=== PATIENT | male | born 1960 | race Caucasian/White ===

== ENCOUNTER 2018-10-28 23:25 | Emergency (ER) | payer MEDICAID ==
[~2018-10-28] VITALS: Ht 185.4 cm; Wt 138.0 kg
[2018-10-28 23:30] VITALS: BP 176/117
--- NOTE | 2018-10-29 00:06 | NUR ---
PT HERE FOR MEDICATION REFILL. PT RAN OUT OF AND DOES NOT HAVE PCP FOR REFILL. PT RESTING IN BED.
--- NOTE | 2018-10-29 00:36 | NUR ---
Patient/Caregiver given discharge instructions and they have confirmed that they understand the instructions. Patient ambulatory with steady gait.
== END 2018-10-29 00:37 | disposition home or self-care (01) ==
LOC: ED 10-29 00:11
DX: I10 Essential (primary) hypertension (principal); Z76.0 Encounter for issue of repeat prescription; F17.200 Nicotine dependence, unspecified, uncomplicated; E78.00 Pure hypercholesterolemia, unspecified
CPT/HCPCS: 99283

== ENCOUNTER 2018-11-20 15:57 | Emergency (ER) | payer MEDICAID ==
[~2018-11-20] VITALS: Ht 185.4 cm; Wt 139.6 kg
[2018-11-20] MEDS ORDERED: LIDOCAINE-MPF 1%, 5ML INFIL ONE (16:30)
[2018-11-20 16:36] VITALS: BP 159/100
[2018-11-20] MEDS ORDERED: LIDOCAINE-MPF 1%, 5ML ONE (16:54)
--- NOTE | 2018-11-20 18:27 | NUR ---
I&D RIGHT UPPER ARM BY CARPET INSTALLER HELPER. CLEAN DRY DRESSING IN PLACE. AMBULATED TO DISCHARGE WINDOW, STEADY GAIT
== END 2018-11-20 18:29 | disposition home or self-care (01) ==
LOC: ED 18:21
DX: L02.413 Cutaneous abscess of right upper limb (principal); F11.10 Opioid abuse, uncomplicated; I10 Essential (primary) hypertension; E78.5 Hyperlipidemia, unspecified; E07.9 Disorder of thyroid, unspecified; F17.200 Nicotine dependence, unspecified, uncomplicated
CPT/HCPCS: 10060; 99283

== ENCOUNTER 2019-08-01 15:15 | Emergency (ER) | payer MEDICAID ==
[~2019-08-01] VITALS: Ht 182.9 cm; Wt 138.0 kg
--- NOTE | 2019-08-01 15:58 | NUR ---
NO ANSWER IN THE LOBBY AT THIS TIME.
--- NOTE | 2019-08-01 16:06 | NUR ---
NO ANSWER IN THE LOBBY AT THIS TIME.
--- NOTE | 2019-08-01 16:16 | NUR ---
PT TO ROOM FROM LOBBY AT THIS TIME.
--- NOTE | 2019-08-01 16:35 | NUR ---
PT BROUGHT BACK FROM TRIAGE WITH CHIEF COMPLAINT RIGHT EYE SWELLING AND REDDNESS SINCE LAST NIGHT.
--- NOTE | 2019-08-01 17:00 | NUR ---
PT RESTING IN BED, CALL LIGHT IN REACH
[2019-08-01] MEDS ORDERED: LABETALOL 5MG/ML, 20ML IVPush ONE (17:30)
[2019-08-01] MEDS ORDERED: AMPICILLIN/SULBACTAM 3 GM in SODIUM CHLORIDE 0.9% 100 ML IV ONE (17:30)
[2019-08-01] MEDS ORDERED: LABETALOL 5MG/ML, 20ML ONE (17:36)
[2019-08-01 17:49] LABS: BASOPHILS # (AUTO) 0.03 x10^3/uL (0-0.1); BASOPHILS % (AUTO) 0 % (0-1); EOSINOPHILS # (AUTO) 0.53 x10^3/uL (0-0.4); EOSINOPHILS % (AUTO) 4 % (1-7); LYMPHOCYTES # (AUTO) 1.32 x10^3/uL (1-3.4); LYMPHOCYTES % (AUTO) 11 % (22-44); MD NO; MEAN CORPUSCULAR HEMOGLOBIN 32.9 pg (27.5-34.5); MEAN CORPUSCULAR HGB CONC 33.9 g/dL (33.2-36.2); MEAN CORPUSCULAR VOLUME 96.9 fL (81-97); MEAN PLATELET VOLUME 8.9 fL (7.4-10.4); MONOCYTES # (AUTO) 0.85 x10^3/uL (0.2-0.8); MONOCYTES % (AUTO) 7 % (2-9); NEUTROPHILS # (AUTO) 9.42 x10^3/uL (1.8-6.8); NEUTROPHILS % (AUTO) 78 % (42-75); PLATELET COUNT 215 x10^3/uL (130-400); RED BLOOD COUNT 4.44 x10^6/uL (4.38-5.82); RED CELL DISTRIBUTION WIDTH 14.2 % (9.4-14.8)
[2019-08-01 18:00] LABS: ALANINE AMINOTRANSFERASE 32 U/L (12-78); ALBUMIN 3.4 g/dL (3.4-5.0); ANION GAP 5 mmol/L (5-15); CHLORIDE 106 mmol/L (98-107)
[2019-08-01 18:04] LABS: ALKALINE PHOSPHATASE 46 U/L (45-117); BILIRUBIN,TOTAL 0.3 mg/dL (0.2-1.0); TOTAL PROTEIN 7.9 g/dL (6.4-8.2); TROPONIN I 0.026 ng/mL (0.000-0.045)
--- NOTE | 2019-08-01 18:05 | NUR ---
WAITING FOR ULTRASOUND PIV PLACEMENT.
[2019-08-01 18:25] LABS: FREE T4 (FREE THYROXINE) 0.47 ng/dL (0.76-1.46)
[2019-08-01] MEDS ORDERED: hydrALAzine 20 MG/ML, 1ML IV ONE (18:30)
--- NOTE | 2019-08-01 18:43 | NUR ---
PT TO CT
--- NOTE | 2019-08-01 18:58 | NUR ---
Assumed care from AMINATA Zacarias
[2019-08-01] MEDS ORDERED: OMNIPAQUE 350 MG/ML, 75ML BOTTLE ONE (19:02)
[2019-08-01] MEDS ORDERED: hydrALAzine 20 MG/ML, 1ML ONE (19:04)
--- NOTE | 2019-08-01 19:10 | NUR ---
Pt returned from CT. BP med given. Pt aware of wait for CT results. Call light in place.
[2019-08-01] MEDS ORDERED: FUROSEMIDE 40 MG/4 ML IV ONE (20:00)
[2019-08-01] MEDS ORDERED: FUROSEMIDE 20 MG/2 ML ONE (20:02)
[2019-08-01 20:07] VITALS: BP 213/136
--- NOTE | 2019-08-01 20:22 | NUR ---
Pt d/c'd to home care. Pt alert, oriented and ambulatory. Pt educated on prescriptions, home care, OTC meds and follow-up. Pt VU. Pt ambulated out of ER.
== END 2019-08-01 20:25 | disposition home or self-care (01) ==
LOC: ED 20:00
DX: L03.213 Periorbital cellulitis (principal); E03.9 Hypothyroidism, unspecified; F17.200 Nicotine dependence, unspecified, uncomplicated; I10 Essential (primary) hypertension; R50.9 Fever, unspecified; R94.31 Abnormal electrocardiogram [ECG] [EKG]; E78.5 Hyperlipidemia, unspecified; Z76.0 Encounter for issue of repeat prescription
CPT/HCPCS: 36415; 70481; 71045; 80053; 83605; 83880; 84439; 84443; 84484; 85025; 87040; 93005; 96365; 96375; 99285; J0295; J0360; J1940; Q9967

== ENCOUNTER 2019-10-08 14:22 | Inpatient (IN) | payer MEDICAID ==
[~2019-10-08] VITALS: Ht 185.4 cm; Wt 138.2 kg
--- NOTE | 2019-10-08 14:42 | NUR ---
PT STATES THAT HE HAS PAINFUL URINATION WITH SOB THAT DEVELOPED SPONTANEOUSLY 2 DAYS AGO. PT STATES THAT HE USES METH AND HEROIN WITH HIS LAST USE BEING YESTERDAY AND THAT HE HAS A LUMP ON HIS LEG. PT AMBULATORY AND EUPNIC. PLACED ON MONITOR. WILL CONTINUE TO MONITOR PT.
[2019-10-08] MEDS ORDERED: LABETALOL 5MG/ML, 20ML ONE (15:58)
[2019-10-08] MEDS ORDERED: SODIUM CHLORIDE FLUSH 10ML SYR IVF ONE (16:00)
[2019-10-08] MEDS ORDERED: LABETALOL 5MG/ML, 20ML IVPush ONE (16:00)
--- NOTE | 2019-10-08 17:07 | NUR ---
PIV PLACED ON SECOND ATTEMPT. PT TOLERATED ATTMEPT WELL AND HAPPY TO HAVE PIV PLACED.
[2019-10-08 17:27] LABS: MICROSCOPIC AUTO
[2019-10-08 17:29] LABS: CULTURE INDICATED? NO
[2019-10-08 18:47] LABS: BASOPHILS # (AUTO) 0.05 x10^3/uL (0-0.1); BASOPHILS % (AUTO) 1 % (0-1); EOSINOPHILS # (AUTO) 0.67 x10^3/uL (0-0.4); EOSINOPHILS % (AUTO) 8 % (1-7); LYMPHOCYTES # (AUTO) 2.02 x10^3/uL (1-3.4); LYMPHOCYTES % (AUTO) 25 % (22-44); MD NO; MEAN CORPUSCULAR HEMOGLOBIN 32.7 pg (27.5-34.5); MEAN CORPUSCULAR HGB CONC 33.4 g/dL (33.2-36.2); MEAN CORPUSCULAR VOLUME 97.9 fL (81-97); MEAN PLATELET VOLUME 9.3 fL (7.4-10.4); MONOCYTES % (AUTO) 9 % (2-9); NEUTROPHILS # (AUTO) 4.72 x10^3/uL (1.8-6.8); NEUTROPHILS % (AUTO) 58 % (42-75); PLATELET COUNT 204 x10^3/uL (130-400); RED BLOOD COUNT 4.35 x10^6/uL (4.38-5.82); RED CELL DISTRIBUTION WIDTH 14.6 % (9.4-14.8)
[2019-10-08 18:51] LABS: ALBUMIN 3.3 g/dL (3.4-5.0); ANION GAP 4 mmol/L (5-15); CALCIUM 8.8 mg/dL (8.5-10.1); CHLORIDE 107 mmol/L (98-107); CREATININE 1.67 mg/dL (0.7-1.3)
[2019-10-08 18:55] LABS: TROPONIN I 0.025 ng/mL (0.000-0.045)
--- NOTE | 2019-10-08 20:15 | NUR ---
TP RN: PER DR. CONDON NO NEED FOR COVID R/O.
[2019-10-08 20:17] LABS: ALANINE AMINOTRANSFERASE 33 U/L (12-78); ALBUMIN 3.3 g/dL (3.4-5.0)
[2019-10-08 20:19] LABS: BILIRUBIN, DIRECT < 0.1 mg/dL (0.1-0.2)
[2019-10-08 20:21] LABS: ALKALINE PHOSPHATASE 34 U/L (45-117); BILIRUBIN,TOTAL 0.3 mg/dL (0.2-1.0); CREATINE KINASE, TOTAL 538 U/L (39-308); TOTAL PROTEIN 7.5 g/dL (6.4-8.2)
[2019-10-08] MEDS ORDERED: TRAZODONE 50MG TABLET PO PRN (20:30)
[2019-10-08] MEDS ORDERED: METHOCARBAMOL 500 MG TABLET PO PRN (20:30)
[2019-10-08] MEDS ORDERED: ONDANSETRON 2MG/ML, 2ML IVPush PRN (20:30)
[2019-10-08] MEDS ORDERED: ACETAMINOPHEN 325 MG TABLET PO PRN (20:30)
[2019-10-08 20:34] LABS: BILIRUBIN,INDIRECT 0.2 mg/dL (0.0-2.0)
--- NOTE | 2019-10-08 20:48 | NUR ---
GAVE REPORT TO KARINA COATES
[2019-10-08 20:49] LABS: CREATININE,URINE RANDOM 92.1 mg/dL
[2019-10-08 21:09] LABS: CHLORIDE,URINE RANDOM 107 mmol/L; POTASSIUM,URINE RANDOM 57 mmol/L; SODIUM,URINE RANDOM 84 mmol/L
[2019-10-08 21:16] VITALS: BP 220/125
[2019-10-08 21:22] LABS: FREE T4 (FREE THYROXINE) 0.41 ng/dL (0.76-1.46)
[2019-10-08] MEDS: NICOTINE 14MG/24 HR PATCH.TD24 TD SCH (21:28)
[2019-10-08] MEDS: HEPARIN 5,000 UNITS/ML, 1ML SQ SCH (21:29)
[2019-10-08] MEDS: hydrALAzine 20 MG/ML, 1ML IVPush PRN (21:29)
[2019-10-08 21:32] VITALS: BP 203/120
[2019-10-08 23:00] VITALS: BP 216/114
[2019-10-08] MEDS ORDERED: OXYcodone/APAP 10/325MG TABLET PO ONE (23:30)
[2019-10-09 01:14] VITALS: BP 210/120
[2019-10-09] MEDS: NITROGLYCERIN OINT 2%, 1GM TP SCH ×3 (01:16→10:51)
[2019-10-09] MEDS: LIOTHYRONINE 5 MCG TABLET PO SCH ×2 (01:17→08:42)
[2019-10-09] MEDS: LEVOTHYROXINE 100 MCG INJ IVPush SCH ×2 (01:17→08:42)
[2019-10-09 01:43] LABS: AMPHETAMINE SCREEN, URINE Positive (Negative); BARBITURATE SCREEN, URINE Negative (Negative); BENZODIAZEPINE SCREEN, URINE Negative (Negative); CANNABINOID SCREEN, URINE Negative (Negative); COCAINE SCREEN, URINE Negative (Negative); METHADONE SCREEN, URINE Negative (Negative); OPIATE SCREEN, URINE Positive (Negative)
[2019-10-09 01:56] VITALS: BP 200/124
[2019-10-09 02:46] VITALS: BP 217/142
[2019-10-09] MEDS: HEPARIN 5,000 UNITS/ML, 1ML SQ SCH ×3 (03:37→20:27)
[2019-10-09 06:46] LABS: BASOPHILS # (AUTO) 0.05 x10^3/uL (0-0.1); BASOPHILS % (AUTO) 1 % (0-1); EOSINOPHILS # (AUTO) 0.55 x10^3/uL (0-0.4); EOSINOPHILS % (AUTO) 6 % (1-7); LYMPHOCYTES # (AUTO) 1.17 x10^3/uL (1-3.4); LYMPHOCYTES % (AUTO) 14 % (22-44); MD NO; MEAN CORPUSCULAR HEMOGLOBIN 32.8 pg (27.5-34.5); MEAN CORPUSCULAR VOLUME 99.3 fL (81-97); MEAN PLATELET VOLUME 8.6 fL (7.4-10.4); MONOCYTES # (AUTO) 0.49 x10^3/uL (0.2-0.8); MONOCYTES % (AUTO) 6 % (2-9); NEUTROPHILS # (AUTO) 6.31 x10^3/uL (1.8-6.8); NEUTROPHILS % (AUTO) 74 % (42-75); PLATELET COUNT 206 x10^3/uL (130-400); RED CELL DISTRIBUTION WIDTH 14.3 % (9.4-14.8)
[2019-10-09] MEDS ORDERED: METHADONE 5 MG TABLET PO SCH (07:00)
[2019-10-09 07:07] LABS: ANION GAP 6 mmol/L (5-15); CALCIUM 9.8 mg/dL (8.5-10.1); CHLORIDE 104 mmol/L (98-107)
[2019-10-09 07:10] LABS: CHOLESTEROL, TOTAL 256 mg/dL (140-239); CREATININE 1.61 mg/dL (0.7-1.3); HDL CHOL % 20 % (26-37); HDL CHOLESTEROL (DIRECT) 51 mg/dL (40-60); LDL CHOLESTEROL,CALCULATED 154 mg/dL (54-169); TRIGLYCERIDES 256 mg/dL (50-200); VLDL CHOLESTEROL 51 mg/dL (0-25)
[2019-10-09] MEDS: AMLODIPINE 5 MG TABLET PO SCH ×2 (10:26→20:27)
[2019-10-09] MEDS ORDERED: METHADONE 10 MG TABLET ONE (10:57)
[2019-10-09] MEDS: METHADONE 10 MG TABLET PO SCH ×2 (11:55→18:05)
[2019-10-09] MEDS: hydrALAzine 20 MG/ML, 1ML IVPush PRN (13:30)
[2019-10-09] MEDS ORDERED: LABETALOL 5MG/ML, 20ML IVPush PRN (16:00)
[2019-10-09] MEDS: METOPROLOL TARTRATE 25 MG TAB PO SCH (16:00)
[2019-10-09] MEDS: NICOTINE 14MG/24 HR PATCH.TD24 TD SCH (20:27)
[2019-10-10] MEDS: METOPROLOL TARTRATE 25 MG TAB PO SCH
[2019-10-10] MEDS: METHADONE 10 MG TABLET PO SCH ×3 (00:35→13:02)
[2019-10-10 04:44] LABS: ANION GAP 3 mmol/L (5-15); CALCIUM 9.2 mg/dL (8.5-10.1); CHLORIDE 103 mmol/L (98-107); CREATININE 1.47 mg/dL (0.7-1.3)
[2019-10-10 04:55] LABS: BASOPHILS # (AUTO) 0.05 x10^3/uL (0-0.1); BASOPHILS % (AUTO) 0 % (0-1); EOSINOPHILS # (AUTO) 0.41 x10^3/uL (0-0.4); EOSINOPHILS % (AUTO) 4 % (1-7); LYMPHOCYTES % (AUTO) 15 % (22-44); MD NO; MEAN CORPUSCULAR HEMOGLOBIN 32.4 pg (27.5-34.5); MEAN CORPUSCULAR HGB CONC 33.2 g/dL (33.2-36.2); MEAN CORPUSCULAR VOLUME 97.8 fL (81-97); MEAN PLATELET VOLUME 9.2 fL (7.4-10.4); MONOCYTES # (AUTO) 0.67 x10^3/uL (0.2-0.8); MONOCYTES % (AUTO) 6 % (2-9); NEUTROPHILS # (AUTO) 7.76 x10^3/uL (1.8-6.8); NEUTROPHILS % (AUTO) 75 % (42-75); PLATELET COUNT 215 x10^3/uL (130-400); RED BLOOD COUNT 5.06 x10^6/uL (4.38-5.82); RED CELL DISTRIBUTION WIDTH 14.7 % (9.4-14.8)
[2019-10-10] MEDS: HEPARIN 5,000 UNITS/ML, 1ML SQ SCH ×2 (05:27→13:02)
[2019-10-10] MEDS ORDERED: CARVEDILOL 12.5 MG TABLET PO SCH (07:30)
[2019-10-10] MEDS: LEVOTHYROXINE 100 MCG INJ IVPush SCH (08:24)
[2019-10-10] MEDS: AMLODIPINE 5 MG TABLET PO SCH ×2 (08:25→09:00)
[2019-10-10] MEDS: LIOTHYRONINE 5 MCG TABLET PO SCH (08:25)
== END 2019-10-10 14:00 | disposition left against medical advice (07) | DRG 199 ==
LOC: ED 15:31 → EDIP 19:17 → 5SO 21:05 → CCU 10-09 03:19
PROVIDERS: ADMIT Family Medicine; ATTEND Internal Medicine
DX: I16.1 Hypertensive emergency (principal); N17.0 Acute kidney failure with tubular necrosis; E03.9 Hypothyroidism, unspecified; D75.89 Other specified diseases of blood and blood-forming organs; E66.01 Morbid (severe) obesity due to excess calories; Z68.41 Body mass index [BMI] 40.0-44.9, adult; E78.5 Hyperlipidemia, unspecified; F11.10 Opioid abuse, uncomplicated; F15.10 Other stimulant abuse, uncomplicated; F17.210 Nicotine dependence, cigarettes, uncomplicated; G47.33 Obstructive sleep apnea (adult) (pediatric); I12.9 Hypertensive chronic kidney disease with stage 1 through stage 4 chronic kidney disease, or unspecified chronic kidney disease; R39.11 Hesitancy of micturition; N18.3 Chronic kidney disease, stage 3 (moderate); Z91.19 Patient's noncompliance with other medical treatment and regimen
CPT/HCPCS: 36415; 71045; 78598; 80048; 80061; 80074; 80076; 80307; 81001; 82040; 82436; 82533; 82550; 82570; 82607; 83735; 83880; 84100; 84133; 84156; 84300; 84439; 84443; 84481; 84484; 85025; 87081; 87521; 87806; 93005; 93306; G0378; J1644; A9540; A9558; G0475; J0360; J7050

== ENCOUNTER 2019-10-10 15:23 | Inpatient (IN) | payer MEDICAID ==
[~2019-10-10] VITALS: Ht 185.4 cm; Wt 136.2 kg
--- NOTE | 2019-10-10 15:42 | NUR ---
TEST FIXTURE DESIGNER: PT TO ROOM FROM [facility]
--- NOTE | 2019-10-10 16:04 | NUR ---
THIS IS A 59 YO M W/ C/O SOB THAT STARTED TODAY. PT STATES THAT HE LEFT AMA EVEN THOUGH HE WANTED TO STAY IN PATIENT TODAY. PT STATES "I'M AN IDIOT, I GOT MOUTHY BECAUSE I WAS WITHDRAWING FROM HEROIN, I SHOULDN'T OF BEEN SO MEAN". PT REQUIRING 2L O2 TO MAINTAIN >90%, OTHER VS WDL. NO OTHER C/O A THIS TIME. PT RESTING ON GURNEY W/ CALL LIGHT IN REACH. AWAITING ED EVAL.
--- NOTE | 2019-10-10 16:52 | NUR ---
PT RESTING ON [place] W/ CALL LIGHT IN REACH. NO ORDERS AT THIS TIME.
--- NOTE | 2019-10-10 17:46 | NUR ---
LAB IN ROOM.
--- NOTE | 2019-10-10 18:01 | NUR ---
PT RESTING ON EZDOCTORRCalastone W/ CALL LIGHT IN REACH, RESP EVEN AND UNLABORED, NADN. AWAITING RESULTS.
[2019-10-10 18:09] LABS: BASOPHILS # (AUTO) 0.04 x10^3/uL (0-0.1); BASOPHILS % (AUTO) 0 % (0-1); EOSINOPHILS # (AUTO) 0.53 x10^3/uL (0-0.4); EOSINOPHILS % (AUTO) 5 % (1-7); LYMPHOCYTES # (AUTO) 2.05 x10^3/uL (1-3.4); LYMPHOCYTES % (AUTO) 19 % (22-44); MD NO; MEAN CORPUSCULAR HEMOGLOBIN 32.4 pg (27.5-34.5); MEAN CORPUSCULAR HGB CONC 32.8 g/dL (33.2-36.2); MEAN CORPUSCULAR VOLUME 98.7 fL (81-97); MEAN PLATELET VOLUME 9.1 fL (7.4-10.4); MONOCYTES # (AUTO) 0.74 x10^3/uL (0.2-0.8); MONOCYTES % (AUTO) 7 % (2-9); NEUTROPHILS # (AUTO) 7.22 x10^3/uL (1.8-6.8); NEUTROPHILS % (AUTO) 68 % (42-75); PLATELET COUNT 254 x10^3/uL (130-400); RED CELL DISTRIBUTION WIDTH 14.6 % (9.4-14.8)
[2019-10-10 18:11] LABS: ALBUMIN 3.5 g/dL (3.4-5.0); ANION GAP 5 mmol/L (5-15); CALCIUM 9.2 mg/dL (8.5-10.1); CHLORIDE 101 mmol/L (98-107); CREATININE 2.35 mg/dL (0.7-1.3)
[2019-10-10 18:15] LABS: TROPONIN I 0.027 ng/mL (0.000-0.045)
--- NOTE | 2019-10-10 19:12 | NUR ---
Wilberto mary in [facility] - 10/10/19 at 1917 by YAZMIN AYANA RN: ANSELMO IBARRA MD R/O
--- NOTE | 2019-10-10 19:17 | NUR ---
TP RN: DR JACKMAN TO COVID C/O
[2019-10-10] MEDS ORDERED: ACETAMINOPHEN 325 MG TABLET PO PRN (20:30)
[2019-10-10] MEDS ORDERED: DOCUSATE 100 MG CAPSULE PO PRN (20:30)
[2019-10-10] MEDS ORDERED: hydrALAzine 20 MG/ML, 1ML IVPush PRN (20:30)
[2019-10-10] MEDS ORDERED: ONDANSETRON 2MG/ML, 2ML IVPush PRN (20:30)
--- NOTE | 2019-10-10 20:41 | NUR ---
REPORT CALLED TO KAITLYNN ON 4TH FLOOR. PT AGREEABLE TO PLAN OF CARE. 93% ON 3l. NO DISTRESS.
[2019-10-10] MEDS ORDERED: LORazepam 1MG TABLET PO ONE (22:30)
[2019-10-10] MEDS: NICOTINE 14MG/24 HR PATCH.TD24 TD SCH (22:47)
[2019-10-10] MEDS: LACTATED RINGERS 1,000 ML IV SCH (22:47)
[2019-10-10] MEDS: HEPARIN 5,000 UNITS/ML, 1ML SQ SCH (22:48)
[2019-10-10] MEDS: AMLODIPINE 5 MG TABLET PO SCH (22:48)
[2019-10-10] MEDS ORDERED: ALBUTEROL/IPRATROPIUM 2.5MG/0.5MG, 3 ML NPPB SCH (23:00)
[2019-10-11] MEDS ORDERED: ALBUTEROL-IPRATROPIUM MDI INH INH PRN (01:00)
[2019-10-11] MEDS ORDERED: ALBUTEROL/IPRATROPIUM 2.5MG/0.5MG, 3 ML NPPB PRN (01:00)
[2019-10-11 01:17] VITALS: BP 145/84
[2019-10-11 05:19] LABS: BASOPHILS # (AUTO) 0.06 x10^3/uL (0-0.1); BASOPHILS % (AUTO) 1 % (0-1); EOSINOPHILS # (AUTO) 0.64 x10^3/uL (0-0.4); EOSINOPHILS % (AUTO) 7 % (1-7); LYMPHOCYTES # (AUTO) 1.81 x10^3/uL (1-3.4); LYMPHOCYTES % (AUTO) 20 % (22-44); MD NO; MEAN CORPUSCULAR HEMOGLOBIN 33.3 pg (27.5-34.5); MEAN CORPUSCULAR HGB CONC 33.9 g/dL (33.2-36.2); MEAN CORPUSCULAR VOLUME 98.4 fL (81-97); MONOCYTES # (AUTO) 0.91 x10^3/uL (0.2-0.8); MONOCYTES % (AUTO) 10 % (2-9); NEUTROPHILS # (AUTO) 5.46 x10^3/uL (1.8-6.8); NEUTROPHILS % (AUTO) 62 % (42-75); PLATELET COUNT 228 x10^3/uL (130-400); RED BLOOD COUNT 4.57 x10^6/uL (4.38-5.82); RED CELL DISTRIBUTION WIDTH 14.5 % (9.4-14.8)
[2019-10-11] MEDS: HEPARIN 5,000 UNITS/ML, 1ML SQ SCH ×3 (05:51→21:15)
[2019-10-11] MEDS ORDERED: LEVOTHYROXINE 150 MCG TABLET PO SCH (06:00)
[2019-10-11 07:34] LABS: ANION GAP 4 mmol/L (5-15); CHLORIDE 105 mmol/L (98-107); CREATININE 2.19 mg/dL (0.7-1.3)
[2019-10-11 07:43] LABS: FREE T4 (FREE THYROXINE) 0.48 ng/dL (0.76-1.46)
[2019-10-11] MEDS: LACTATED RINGERS 1,000 ML IV SCH ×2 (08:05→21:14)
[2019-10-11 08:07] VITALS: BP 164/84
[2019-10-11] MEDS: AMLODIPINE 5 MG TABLET PO SCH ×2 (08:10→21:15)
[2019-10-11] MEDS: LORazepam 0.5MG TABLET PO PRN ×2 (10:17→17:04)
[2019-10-11 12:37] VITALS: BP 160/86
[2019-10-11] MEDS: NICOTINE 14MG/24 HR PATCH.TD24 TD SCH (21:14)
[2019-10-11 22:25] VITALS: BP 199/97
[2019-10-11 22:53] VITALS: BP 177/99
[2019-10-12 01:47] VITALS: BP 160/99
[2019-10-12] MEDS ORDERED: LEVOTHYROXINE 100 MCG TABLET ONE (04:13)
[2019-10-12] MEDS: HEPARIN 5,000 UNITS/ML, 1ML SQ SCH ×3 (05:11→20:42)
[2019-10-12] MEDS: LEVOTHYROXINE 200 MCG TABLET PO SCH (05:11)
[2019-10-12] MEDS: LORazepam 0.5MG TABLET PO PRN ×2 (05:35→12:25)
[2019-10-12 07:57] VITALS: BP 142/93
[2019-10-12] MEDS: AMLODIPINE 5 MG TABLET PO SCH ×2 (08:39→20:42)
[2019-10-12] MEDS: LACTATED RINGERS 1,000 ML IV SCH (08:39)
[2019-10-12 13:52] VITALS: BP 136/81
[2019-10-12] MEDS ORDERED: LORazepam 0.5MG TABLET PO ONE (16:00)
[2019-10-12] MEDS: NICOTINE 14MG/24 HR PATCH.TD24 TD SCH (20:42)
[2019-10-12 20:47] VITALS: BP 135/84
[2019-10-13 00:40] VITALS: BP 155/93
[2019-10-13] MEDS: LACTATED RINGERS 1,000 ML IV SCH (03:30)
[2019-10-13] MEDS: LEVOTHYROXINE 200 MCG TABLET PO SCH (05:45)
[2019-10-13] MEDS: HEPARIN 5,000 UNITS/ML, 1ML SQ SCH (05:46)
[2019-10-13] MEDS: LORazepam 0.5MG TABLET PO PRN (05:54)
[2019-10-13 07:17] VITALS: BP 149/105
[2019-10-13] MEDS ORDERED: CARVEDILOL 12.5 MG TABLET PO SCH (08:00)
[2019-10-13] MEDS ORDERED: ACETAMINOPHEN 325 MG TABLET PO PRN (08:00)
[2019-10-13] MEDS ORDERED: HYDR-3341 PO (10:35)
[2019-10-13] MEDS ORDERED: NICO-486 TD (10:35)
[2019-10-13] MEDS ORDERED: LEVO200T PO (10:35)
[2019-10-13] MEDS ORDERED: CARV12.52 PO (10:35)
[2019-10-13] MEDS ORDERED: LACTATED RINGERS 1,000 ML IV SCH (20:30)
[2019-10-13] MEDS ORDERED: SENNA/DOCUSATE TABLET PO SCH (21:00)
== END 2019-10-13 12:57 | disposition home or self-care (01) | DRG 140 ==
LOC: ED 16:31 → EDIP 19:01 → 4NE 21:03 → 3N 10-12 21:15
PROVIDERS: ADMIT Hospitalist; ATTEND Internal Medicine
DX: J44.1 Chronic obstructive pulmonary disease with (acute) exacerbation (principal); N17.0 Acute kidney failure with tubular necrosis; J96.01 Acute respiratory failure with hypoxia; E03.9 Hypothyroidism, unspecified; E66.01 Morbid (severe) obesity due to excess calories; E78.5 Hyperlipidemia, unspecified; F17.210 Nicotine dependence, cigarettes, uncomplicated; G47.33 Obstructive sleep apnea (adult) (pediatric); F19.10 Other psychoactive substance abuse, uncomplicated; I10 Essential (primary) hypertension; Q87.11 Prader-Willi syndrome; Q98.4 Klinefelter syndrome, unspecified; Z68.39 Body mass index [BMI] 39.0-39.9, adult; Z91.19 Patient's noncompliance with other medical treatment and regimen; Z03.818 Encounter for observation for suspected exposure to other biological agents ruled out
CPT/HCPCS: 36415; 71045; 80048; 82040; 83605; 83735; 84100; 84439; 84443; 84481; 84484; 85025; 93005; 96374; 99285; G0378; J1644; J0360; J7120; J7512; U0001

== ENCOUNTER 2019-12-17 19:55 | Emergency (ER) | payer MEDICAID ==
[~2019-12-17] VITALS: Ht 182.9 cm; Wt 135.5 kg
[~2019-12-17 19:55] MED LIST: CARV12.52 PO; HYDR-3341 PO; LEVO200T PO; NICO-486 TD
[2019-12-17 20:06] VITALS: BP 191/108
--- NOTE | 2019-12-17 20:26 | NUR ---
PT WITH MULTIPLE COMPLAINTS. STATES BAUER X2 DAYS. PT IS A&OX4. MOVING ALL EXTREMITIES. PT ALSO STATES INCREASED SOB. UNABLE TO WALK MORE THAN A COUPLE STEPS W/O SIG SOB. PT ALSO C/O R SIDE PAIN. STATES HE HAS BEEN OUT OF HIS MEDS AND FEELS LIKE HE NEEDS SOMEONE TO "DO ALL THIS FOR ME". PT IS NSR ON MONITOR. HTN. PROVIDER AT BEDSIDE TO NEVAEH.
[2019-12-17] MEDS ORDERED: SODIUM CHLORIDE FLUSH 10ML SYR IVF ONE (21:00)
[2019-12-17 21:08] LABS: ALBUMIN 3.4 g/dL (3.4-5.0); ANION GAP 3 mmol/L (5-15); CALCIUM 8.7 mg/dL (8.5-10.1); CHLORIDE 111 mmol/L (98-107); CREATININE 1.88 mg/dL (0.7-1.3)
[2019-12-17] MEDS ORDERED: ENALAPRILAT 1.25 MG/ML, 1ML IV ONE (21:30)
[2019-12-17 21:39] LABS: BASOPHILS # (AUTO) 0.03 x10^3/uL (0-0.1); BASOPHILS % (AUTO) 0 % (0-1); EOSINOPHILS % (AUTO) 4 % (1-7); LYMPHOCYTES # (AUTO) 1.77 x10^3/uL (1-3.4); LYMPHOCYTES % (AUTO) 19 % (22-44); MD SCAN; MEAN CORPUSCULAR HEMOGLOBIN 32.1 pg (27.5-34.5); MEAN CORPUSCULAR HGB CONC 32.9 g/dL (33.2-36.2); MEAN CORPUSCULAR VOLUME 97.6 fL (81-97); MEAN PLATELET VOLUME 9.2 fL (7.4-10.4); MONOCYTES # (AUTO) 0.75 x10^3/uL (0.2-0.8); MONOCYTES % (AUTO) 8 % (2-9); NEUTROPHILS # (AUTO) 6.49 x10^3/uL (1.8-6.8); NEUTROPHILS % (AUTO) 69 % (42-75); PLATELET COUNT 206 x10^3/uL (130-400); RED BLOOD COUNT 4.33 x10^6/uL (4.38-5.82); RED CELL DISTRIBUTION WIDTH 14.4 % (9.4-14.8)
--- NOTE | 2019-12-17 22:25 | NUR ---
late note: this tech did ekg
[2019-12-17] MEDS ORDERED: CARVEDILOL 12.5 MG TABLET ONE (22:26)
[2019-12-17] MEDS ORDERED: CARVEDILOL 12.5 MG TABLET PO ONE (22:30)
--- NOTE | 2019-12-17 22:33 | NUR ---
PHARMACY REQUEST SENT FOR ORAL MEDICATION ORDER. PT AWAITING MEDICATION AND SUBSEQUENT DISCHARGE AT THIS TIME. CALL LIGHT IN REACH.
== END 2019-12-17 22:45 | disposition home or self-care (01) ==
LOC: ED 22:06
DX: I11.9 Hypertensive heart disease without heart failure (principal); R51 Headache; R06.02 Shortness of breath; E78.5 Hyperlipidemia, unspecified; E03.9 Hypothyroidism, unspecified
CPT/HCPCS: 36415; 80048; 82040; 85025; 93005; 99284

== ENCOUNTER 2020-07-08 22:10 | Emergency (ER) | payer MEDICAID ==
[~2020-07-08] VITALS: Ht 182.9 cm; Wt 135.0 kg
[2020-07-08] MEDS ORDERED: KETOROLAC 30 MG/1 ML ONE (22:50)
[2020-07-08] MEDS ORDERED: ACETAMINOPHEN 500 MG TABLET ONE (22:50)
[2020-07-08] MEDS ORDERED: LIDODERM 5% PATCH TD ONE ×2 (22:50→23:00)
[2020-07-08] MEDS ORDERED: KETOROLAC 30 MG/1 ML IM ONE (23:00)
[2020-07-08] MEDS ORDERED: ACETAMINOPHEN 500 MG TABLET PO ONE (23:00)
[2020-07-08 23:20] VITALS: BP 180/108
--- NOTE | 2020-07-08 23:20 | NUR ---
PT SITTING UPRIGHT ON GURNEY, RESTING COMFORTABLY, ABLE TO DOZE OFF. PT REPORTS "SOME DECREASE IN PAIN". NO ADDITIONAL NEEDS AT THIS TIME.
--- NOTE | 2020-07-08 23:47 | NUR ---
Patient given discharge instructions and they have confirmed that they understand the instructions. Patient ambulatory with steady gait.
== END 2020-07-08 23:49 | disposition home or self-care (01) ==
LOC: ED 22:35
DX: S39.012A Strain of muscle, fascia and tendon of lower back, initial encounter (principal); I10 Essential (primary) hypertension; E03.9 Hypothyroidism, unspecified; E78.5 Hyperlipidemia, unspecified; F17.210 Nicotine dependence, cigarettes, uncomplicated; Z86.39 Personal history of other endocrine, nutritional and metabolic disease; X58.XXXA Exposure to other specified factors, initial encounter; Y93.89 Activity, other specified; Y92.89 Other specified places as the place of occurrence of the external cause; Y99.8 Other external cause status
CPT/HCPCS: 96372; 99283; 99406; J1885

== ENCOUNTER 2020-07-24 15:12 | Emergency (ER) | payer MEDICAID ==
[~2020-07-24] VITALS: Ht 185.4 cm; Wt 141.5 kg
[2020-07-24 15:23] VITALS: BP 190/120
--- NOTE | 2020-07-24 16:45 | NUR ---
PT NOTED TO HAVE PERIORBITAL ERYTHEMA AND SWELLING. DISCHARGE WITH PRESCRIPTION NOTED. PROVIDER AWARE OF CURRENT BP. PT STATES THAT HE DOES NOT TAKE ANY MEDS AND DOES NOT HAVE A PRIMARY CARE PROVIDER. PROVIDED CLINIC NAMES, ADDRESSES AND PHONE NUMBERS FOR CLINICS ON DISCHARGE PAPER. ADMONISHED PT THAT HIS BLOOD PRESSURE PUTS HIM AT RISK FOR SERIOUS MEDICAL ISSUES INCLUDING STROKE, [place], RENAL FAILURE. EXPLAINED TO PT THAT HE MUST TAKE ALL ANTIBIOTICS UNTIL FINISHED EVEN IF HIS EYES IMPROVE BEFORE THAT. PT AMBULATED TO DISCHARGE WINDOW STEADY GAIT.
== END 2020-07-24 16:54 | disposition home or self-care (01) ==
LOC: ED 16:37
DX: R60.0 Localized edema (principal); R51.9 Headache, unspecified; M54.5 Low back pain; I10 Essential (primary) hypertension; E03.9 Hypothyroidism, unspecified; E78.5 Hyperlipidemia, unspecified; F17.210 Nicotine dependence, cigarettes, uncomplicated; Z86.39 Personal history of other endocrine, nutritional and metabolic disease
CPT/HCPCS: 93005; 99283; 99406

== ENCOUNTER 2021-01-29 15:58 | Emergency (ER) | payer MEDICAID ==
[~2021-01-29] VITALS: Ht 177.8 cm; Wt 127.3 kg
--- NOTE | 2021-01-29 16:15 | NUR ---
BIB EMS AFTER PT WAS PULLED OVER AND WAS FOUND BY THE POLICE TO HAVE METH IN HIS CAR. PT THEN C/O CP DEVELOPED ON SCENE. PT STATES HE HAS HAD HEARTBURN SINCE YESTERDAY AND HAS TAKEN ROLLAIDS W/ RELIEF. PT WAS FOUND TO BE 87-89% RA PLACED ON O2 BY EMS. PT STATES HX COPD AND IS NORMALLY ON 2L NC AT HOME BUT DOES NOT HAVE PORTABLE TANK AND LEAVES HOME W/O O2. VS TITLE ATTORNEY HR 105, RR 22, BP 165/84. GIVEN 324 MG ASA TITLE ATTORNEY. PT RESTING ON GURNEY. NADN. MONITORS APPLIED. VSS. WARM BLANKET PROVIDED. CALL LIGHT IN REACH.
--- NOTE | 2021-01-29 16:40 | NUR ---
PT RESTING ON GURNEY. NADN. MUÑOZ.
[2021-01-29] MEDS ORDERED: ASPIRIN 81 MG TABLET CHEW PO ONE (17:30)
--- NOTE | 2021-01-29 17:41 | NUR ---
PT RESTING ON GURNEY. NADN. MUÑOZ.
[2021-01-29 17:53] LABS: BASOPHILS % (AUTO) 1 % (0-1); EOSINOPHILS % (AUTO) 7 % (1-7); LYMPHOCYTES % (AUTO) 17 % (22-44); MEAN CORPUSCULAR HEMOGLOBIN 33.7 pg (27.5-34.5); MEAN CORPUSCULAR HGB CONC 34.3 g/dL (33.2-36.2); MONOCYTES % (AUTO) 8 % (2-9); NEUTROPHILS % (AUTO) 67 % (42-75); PLATELET COUNT 216 x10^3/uL (130-400); RED BLOOD COUNT 4.24 x10^6/uL (4.38-5.82); RED CELL DISTRIBUTION WIDTH 14.2 % (9.4-14.8)
[2021-01-29 18:03] LABS: ALANINE AMINOTRANSFERASE 30 U/L (12-78); ALBUMIN 3.3 g/dL (3.4-5.0); ANION GAP 4 mmol/L (5-15); CALCIUM 9.1 mg/dL (8.5-10.1); CHLORIDE 108 mmol/L (98-107); CREATININE 2.25 mg/dL (0.7-1.3)
[2021-01-29 18:07] LABS: ALKALINE PHOSPHATASE 37 U/L (45-117); BILIRUBIN,TOTAL 0.4 mg/dL (0.2-1.0); TOTAL PROTEIN 8.2 g/dL (6.4-8.2); TROPONIN I < 0.015 ng/mL (0.000-0.045)
--- NOTE | 2021-01-29 18:47 | NUR ---
PT CHART REVIEWED AND PLACED FOR RECHECK.
[2021-01-29 18:55] VITALS: BP 153/88
--- NOTE | 2021-01-29 18:55 | NUR ---
PT RESTING ON GURNEY. NADN. MUÑOZ.
--- NOTE | 2021-01-29 19:09 | NUR ---
PT TESTED ON RA SATING 94% RA. PT STATES "YEAH MY OXYGEN FLUCTUATES. IT'S GOOD AND SOMETIMES IT GOES DOWN I WEAR OXYGEN AT HOME". DISCUSSED W/ MACHINE GREASER WHO STATES THEY HAVE OXYGEN AT THE GROUP HOME FOR PT. ERP DR. LEACH AWARE AND STATES PT IS MEDICALLY CLEARED FOR GROUP HOME. NO NEED FOR OXYGEN FOR TRANSPORTATION. PT STATES HE DRIVES AND LEAVES HIS HOUSE WITHOUT OXYGEN.
== END 2021-01-29 19:16 | disposition home or self-care (01) ==
LOC: ED 16:03
DX: R07.89 Other chest pain (principal); I10 Essential (primary) hypertension; E78.5 Hyperlipidemia, unspecified; E03.9 Hypothyroidism, unspecified; F17.210 Nicotine dependence, cigarettes, uncomplicated
CPT/HCPCS: 36415; 71045; 80053; 83690; 84484; 85025; 93005; 99406